=== PATIENT | female | born 1965 | race Caucasian/White ===

== ENCOUNTER 2022-11-07 16:36 | Emergency (ER) | payer OTHER, SELFPAY ==
[2022-11-07 16:52] VITALS: BMI 25.0
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
[2022-11-07] MEDS: ONDANSETRON 4 MG/2 ML INJ IV (17:06)
[2022-11-07] MEDS: MORPHINE 2 MG/ML INJ IV ×2 (17:06→17:58)
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
[2022-11-07] MEDS: HYDROCODONE/ACET 5/325 PREPACK 1 BOTTLE MISC (18:25)
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
[2022-11-07 18:58] VITALS: BP 115/67; PULSE 65; RESP 18; O2SAT 100
== END 2022-11-07 19:00 | disposition home or self-care (01) ==
PROVIDERS: Emergency Provider Emergency Medicine
DX: S22.31XA Fracture of one rib, right side, initial encounter for closed fracture (principal); S42.001A Fracture of unspecified part of right clavicle, initial encounter for closed fracture; R07.81 Pleurodynia; V19.9XXA Pedal cyclist (driver) (passenger) injured in unspecified traffic accident, initial encounter
CPT/HCPCS: 71101; 73000; 96374; 96375; 99284; J2270; J2405